=== PATIENT | female | born 1975 | race Caucasian/White ===

== ENCOUNTER → 2017-12-23 | Outpatient (CLI) | payer OTHER ==
[~2017-12-23] MED LIST: OXYC1TAB8 PO
== END | disposition home or self-care (01) ==
LOC: CFH 13:03
PROVIDERS: ATTEND Obstetrics & Gynecology Gynecology
DX: N63.20 Unspecified lump in the left breast, unspecified quadrant (principal)
CPT/HCPCS: 77066

== ENCOUNTER → 2018-01-28 | Outpatient (CLI) | payer OTHER ==
[~2018-01-28] MED LIST changes: +LIDOCAINE 1%, 20ML ONE; +LIDOCAINE 1%-EPI 1:100K, 20ML ONE; +SODIUM BICARBONATE 4.0%, 5ML ONE
== END | disposition home or self-care (01) ==
LOC: CFH 09:51
PROVIDERS: ATTEND Obstetrics & Gynecology Gynecology
DX: N60.02 Solitary cyst of left breast (principal)
CPT/HCPCS: 76942; J3490

== ENCOUNTER 2018-02-25 05:41 | Day surgery (SDC) | payer OTHER ==
[~2018-02-25] VITALS: Ht 157.5 cm; Wt 88.9 kg
[~2018-02-25 05:41] MED LIST changes: +ATOR20TA PO; -LIDOCAINE 1%, 20ML ONE; -LIDOCAINE 1%-EPI 1:100K, 20ML ONE; +MELA1TAB8 PO; -SODIUM BICARBONATE 4.0%, 5ML ONE
[2018-02-25] MEDS ORDERED: LACTATED RINGERS 1,000 ML IV SCH (06:16)
[2018-02-25 06:25] VITALS: BP 101/70
[2018-02-25] MEDS ORDERED: SILVER NITRATE STICK TP ONE (07:15)
[2018-02-25] MEDS ORDERED: FLUORESCEIN SODIUM 500 MG/5 ML ONE (07:15)
[2018-02-25] MEDS ORDERED: LIDOCAINE 1%-EPI 1:100K, 30ML ONE (07:15)
[2018-02-25] MEDS ORDERED: ROCURONIUM 10MG/ML,5ML ONE (07:18)
[2018-02-25] MEDS ORDERED: FENTANYL PF 250 MCG/5ML ONE (07:18)
[2018-02-25] MEDS ORDERED: DEXAMETHASONE 4 MG/ML, 1ML ONE ×2 (07:18→08:06)
[2018-02-25] MEDS ORDERED: PROPOFOL 10 MG/ML, 20ML ONE ×2 (07:18→08:16)
[2018-02-25] MEDS ORDERED: MIDAZOLAM 1 MG/ML, 2ML ONE (07:18)
[2018-02-25] MEDS ORDERED: SUCCINYLCHOLINE 20 MG/ML, 10ML ONE (07:18)
[2018-02-25] MEDS ORDERED: KETOROLAC 30 MG/1 ML ONE (07:25)
[2018-02-25] MEDS ORDERED: ONDANSETRON ODT 8 MG PO ONE (07:30)
[2018-02-25] MEDS ORDERED: GABAPENTIN 300 MG CAPSULE PO ONE (07:30)
[2018-02-25] MEDS ORDERED: SCOPOLAMINE PATCH, 1.5MG PATCH.TD72 TD ONE (07:30)
[2018-02-25] MEDS ORDERED: ACETAMINOPHEN 500 MG TABLET PO ONE (07:30)
[2018-02-25] MEDS ORDERED: OXYcodone 5 MG/5 ML ORAL.SOL UDC PO PRN (08:00)
[2018-02-25] MEDS ORDERED: LABETALOL 5MG/ML, 20ML IV PRN (08:00)
[2018-02-25] MEDS ORDERED: ALBUTEROL SULFATE 2.5 MG/3 ML NPPB PRN (08:00)
[2018-02-25] MEDS ORDERED: PROMETHAZINE 25 MG/ML, 1ML IV PRN (08:00)
[2018-02-25] MEDS ORDERED: FENTANYL PF 100 MCG/2ML IV PRN (08:00)
[2018-02-25] MEDS ORDERED: ONDANSETRON ODT 8 MG PO PRN (08:00)
[2018-02-25] MEDS ORDERED: EPHEDRINE 50 MG/ML, 1ML IVPush PRN (08:00)
[2018-02-25] MEDS ORDERED: ONDANSETRON 2MG/ML, 2ML IV PRN (08:00)
[2018-02-25] MEDS ORDERED: LORazepam 2 MG/ML, 1ML IVPush PRN (08:00)
[2018-02-25] MEDS ORDERED: PROMETHAZINE 12.5 MG SUPP PR PRN (08:00)
[2018-02-25] MEDS ORDERED: hydrALAzine 20 MG/ML, 1ML IV PRN (08:00)
[2018-02-25] MEDS ORDERED: HYDROmorphone 1 MG/ML, 1ML IV PRN (08:00)
[2018-02-25] MEDS ORDERED: MIDAZOLAM 1 MG/ML, 2ML IV PRN (08:00)
[2018-02-25] MEDS ORDERED: MORPHINE SULFATE 4 MG/ML, 1ML IVPush PRN (08:00)
[2018-02-25] MEDS ORDERED: MEPERIDINE/PF 25MG/0.5ML IVPush PRN (08:00)
[2018-02-25] MEDS ORDERED: GLYCOPYRROLATE 0.4 MG/2 ML, 2ML ONE (08:05)
[2018-02-25] MEDS ORDERED: NEOSTIGMINE 1 MG/ML, 10ML ONE (08:05)
[2018-02-25] MEDS ORDERED: OXYcodone 5 MG/5 ML ORAL.SOL UDC ONE (08:55)
== END 2018-02-25 11:55 | disposition home or self-care (01) ==
LOC: OUT 05:41
PROVIDERS: ATTEND Obstetrics & Gynecology Gynecology
DX: N73.6 Female pelvic peritoneal adhesions (postinfective) (principal); E78.5 Hyperlipidemia, unspecified; E66.9 Obesity, unspecified; Z90.710 Acquired absence of both cervix and uterus; Z91.040 Latex allergy status; Z68.36 Body mass index [BMI] 36.0-36.9, adult
CPT/HCPCS: 58661; 88302; J0330; J1100; J1885; J2250; J2704; J2710; J3010; J3490; Q0162